=== PATIENT | female | born 1960 | race Caucasian/White ===

== ENCOUNTER → 2017-10-08 | Outpatient (CLI) | payer OTHER ==
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
--- NOTE | 2017-10-08 18:52 | Diagnostic Imaging Report ---
PROCEDURE: MRI lumbar spine. TECHNIQUE: Multiplanar, multisequence MRI of the lumbar spine was performed without contrast. INDICATION: Back pain. FINDINGS: There is some left convexity degenerative lumbar rotoscoliosis. The vertebral body heights are well maintained. There is some slight anterolisthesis of L4 on L5. There is no spondylolysis. Conus medullaris is seen at L1 and is normal in appearance. T12-L1 is unremarkable. At L1-2, there is loss of disc height and signal intensity. There is a left lateral annular bulge resulting in encroachment upon the left lateral recess. There is also moderate bilateral neural foraminal encroachment exacerbated by some hypertrophic degenerative facet disease. At L2-3, there is slight loss of disc height and signal intensity. There is some facet disease with thickening of the ligamentum flavum. There is slight effacement of the ventral thecal sac with mild central spinal stenosis. There is some encroachment upon the lateral recess bilaterally, left greater than right. There is moderate left neural foraminal encroachment. At L3-4, there is slight loss of disc height and signal intensity and some facet disease. At L4-5, there is broad-based annular bulging, facet disease, and thickening of the ligamentum flavum. There is moderately severe central spinal stenosis with encroachment upon the lateral recess bilaterally. There is moderate bilateral neural foraminal encroachment, left greater than right. At L5-S1, there is some mild broad-based annular bulging with slight effacement of the ventral thecal sac. The abdominal aorta is nonaneurysmal. Kidneys are unremarkable. IMPRESSION: Moderate diffuse lumbar spondylosis and multilevel degenerative disc disease as detailed above. Dictated by: Dictated on workstation # [id number]
== END ==
LOC: RAD 17:34
PROVIDERS: ATTEND Pediatrics
DX: M48.02 Spinal stenosis, cervical region (principal); M48.061 Spinal stenosis, lumbar region without neurogenic claudication; M47.812 Spondylosis without myelopathy or radiculopathy, cervical region; M47.816 Spondylosis without myelopathy or radiculopathy, lumbar region; M51.27 Other intervertebral disc displacement, lumbosacral region; M50.20 Other cervical disc displacement, unspecified cervical region; M53.82 Other specified dorsopathies, cervical region
CPT/HCPCS: 72141; 72148

== ENCOUNTER 2018-04-01 23:09 | Emergency (ER) | payer MEDICARE, OTHER ==
[~2018-04-01] VITALS: Ht 165.1 cm; Wt 43.1 kg
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
--- OUTSIDE RECORDS SUMMARY | 2018-04-01 23:17 | XMS REPORT ---
Author Author MANUEL JEOVANY Organization [facility] [place] Address [address] [place] [address] Care Team Providers Care Chemist Steroids Name Role Phone JEOVANY JACKSON Unavailable PROBLEMS Type Condition ICD9-CM Code [id number]-ZN Code Onset Dates Condition Status SNOMED Code Problem Cervical spondylolysis M43.02 Active 626883855 Problem Screening for diabetes mellitus Z13.1 Active 972278275 Problem Osteoarthritis of spine with radiculopathy, lumbosacral region M47.27 Active 395603858 Problem Osteoarthritis of spine with radiculopathy, cervical region M47.22 Active 805655546 Problem Degenerative disc disease, lumbar M51.36 Active 01965916 Problem Port catheter in place Z95.828 Active 703621683 Problem Chronic pain syndrome G89.4 Active 132642099 Problem Post traumatic stress disorder (PTSD) F43.10 Active 02658074 Problem Screening cholesterol level Z13.220 Active 963468520 Problem Bipolar disorder, current episode mixed, severe, without psychotic features F31.63 Active 846892025 Problem Bipolar disorder, current episode manic without psychotic features, severe F31.13 Active 532469 ALLERGIES No Information ENCOUNTERS Encounter Location Date Diagnosis [place] [id number] [place] [address] 20435- 1860 Mar, [facility] [place] [id number] [place] [address] 35360- 5633 Mar, [place] [address] [place] [id number] [place] [address] 37877- 8517 February, Bipolar disorder, current episode manic without psychotic features, severe F31.13 ; Port catheter in place Z95.828 ; Screening cholesterol level Z13.220 ; Chronic pain syndrome G89.4 and Screening for diabetes mellitus Z13.1 [facility] [place] [id number] [place] [address] 94111- 9666 February, [facility] [place] [id number] [place] [address] 84764- 8404 February, Chronic pain syndrome G89.4 [facility] [place] [id number] [place] [address] 68729- 4393 February, [facility] [place] [id number] [place] [address] 50088- 6686 Jan, [facility] [place] [id number] [place] [address] 25860- 9694 Jan, [facility] [place] [id number] [place] [address] 73947- 2836 Dec, Port catheter in place Z95.828 [facility] [place] [id number] [place] [address] 79162- 1865 Dec, Bipolar disorder, current episode manic without psychotic features, severe F31.13 and Chronic pain syndrome G89.4 [facility] [place] [id number] [place] [address] 50723- 6620 Dec, [facility] [id number] [place] [address] 27202 -1218 Dec, Pneumonia due to infectious organism, unspecified laterality, unspecified part of lung J18.9 [facility] [place] [id number] [place] [address] 54265- 5784 Dec, [facility] [place] [id number] [place] [address] 96568- 9824 Nov, Bipolar disorder, current episode mixed, severe, without psychotic features F31.63 [facility] [place] [address] [id number] [place] [address] 31450- 0983 Oct, [facility] [place] [id number] [place] [address] 53079- 1139 Oct, [facility] [place] [id number] [place] [address] 48172- 9812 Oct, [facility] [place] [address] [place] [address] 32465- 4337 Oct, [place] [address] [id number] [place] [address] 70988- 1467 Oct, Bipolar disorder, current episode mixed, severe, without psychotic features F31.63 [place] [address] [id number] [place] [address] 55592- 1722 Oct, Chronic pain syndrome G89.4 ; Bipolar disorder, current episode manic without psychotic features, severe F31.13 ; Post traumatic stress disorder (PTSD) F43.10 ; Screening cholesterol level Z13.220 and Screening for diabetes mellitus Z13.1 [place] [address] [place] [id number] [place] [address] 76672- 0190 Oct, [place] [address] [place] [id number] [place] [address] 72808- 5998 Oct, [place] [address] [place] [id number] [place] [address] 25205- 9931 Sep, [place] [address] 70350- 2339 Sep, Chronic pain syndrome G89.4 and Intermittent explosive disorder F63.81 [place] [address] [place] [id number] [place] [address] 64540- 3487 Sep, [place] [address] [place] [id number] [place] [address] 19728- 4413 Sep, Bipolar disorder, current episode mixed, severe, without psychotic features F31.63 [place] [address] [place] [id number] [place] [address] 68099- 3284 Sep, Bipolar disorder, current episode manic without psychotic features, severe F31.13 and Post traumatic stress disorder (PTSD) F43.10 [place] [address] [place] [id number] [place] [address] 06423- 9957 Aug, Acute bronchitis, unspecified organism J20.9 and Tobacco abuse Z72.0 IMMUNIZATIONS No Known Immunizations SOCIAL HISTORY Never Assessed REASON FOR VISIT PLAN OF CARE VITAL SIGNS MEDICATIONS Medication Instructions Dosage Frequency Start Date End Date Duration Status Seroquel 300 MG Orally at bedtime 1 tablet 30 days Active Trazodone HCl 100 MG Orally at bedtime as needed for sleep 1 tablet 30 days Active Xanax 1 MG Orally at bedtime 3 tablet 30 days Active Seroquel 50 MG Orally twice a day for mood 1 tablet Sep, 30 day(s) Active RESULTS No Results PROCEDURES No Known [...] History tonscillectomy 50 years ago Hospitalization History [place] inpatient treatment maybe 10 times for anger- state police will always take her there and they "dope her up" then she gets out Hospitalization History Surgery(s)/Childbirth(s) Hospitalization History pneumonia
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
--- OUTSIDE RECORDS SUMMARY | 2018-04-01 23:18 | XMS REPORT ---
Author Author MANUEL JEOVANY Organization [facility] Address [address] [place] [address] Care Team Providers Care Instant Printer Operator Name Role Phone JEOVANY JACKSON Unavailable PROBLEMS Type Condition ICD9-CM Code BEN14-WY Code Onset Dates Condition Status SNOMED Code Problem Cervical spondylolysis M43.02 Active 695900943 Problem Screening for diabetes mellitus Z13.1 Active 156212576 Problem Osteoarthritis of spine with radiculopathy, lumbosacral region M47.27 Active 337411928 Problem Osteoarthritis of spine with radiculopathy, cervical region M47.22 Active 929252964 Problem Degenerative disc disease, lumbar M51.36 Active 42180666 Problem Port catheter in place Z95.828 Active 135146290 Problem Chronic pain syndrome G89.4 Active 962781376 Problem Post traumatic stress disorder (PTSD) F43.10 Active 72654779 Problem Screening cholesterol level Z13.220 Active 363288566 Problem Bipolar disorder, current episode mixed, severe, without psychotic features F31.63 Active 771938793 Problem Bipolar disorder, current episode manic without psychotic features, severe F31.13 Active 893362 ALLERGIES No Information ENCOUNTERS Encounter Location Date Diagnosis [place] [address] [place] [address] 10347- 7355 Mar, [facility] [address] [place] [id number] [place] [address] 74817- 2757 Mar, [place] [address] [place] [id number] [place] [address] 22681- 2031 February, Bipolar disorder, current episode manic without psychotic features, severe F31.13 ; Port catheter in place Z95.828 ; Screening cholesterol level Z13.220 ; Chronic pain syndrome G89.4 and Screening for diabetes mellitus Z13.1 [facility] [id number] [place] [address] 78540- 3024 February, [facility] [id number] [place] [address] 09055- 8470 February, Chronic pain syndrome G89.4 [facility] [id number] [place] [address] 30045- 4243 February, [facility] [id number] [place] [address] 10714- 5150 Jan, [facility] [id number] [place] [address] 83096- 8543 Jan, [facility] [id number] [place] [address] 14776- 0168 Dec, Port catheter in place Z95.828 [facility] [id number] [place] [address] 67093- 5919 Dec, Bipolar disorder, current episode manic without psychotic features, severe F31.13 and Chronic pain syndrome G89.4 [facility] [id number] [place] [address] 11482- 7301 Dec, [facility] [id number] [place] [address] 82338 -5420 Dec, Pneumonia due to infectious organism, unspecified laterality, unspecified part of lung J18.9 [facility] [id number] [place] [address] 95945- 7309 Dec, [facility] [id number] [place] [address] 60277- 2124 Nov, Bipolar disorder, current episode mixed, severe, without psychotic features F31.63 [facility] [id number] [place] [address] 69522- 3114 Oct, [facility] [id number] [place] [address] 35250- 3200 Oct, [facility] [id number] [place] [address] 38951- 4382 Oct, [facility] [address] [place] [address] 11360- 1487 Oct, [place] [id number] [place] [address] 35811- 4529 Oct, Bipolar disorder, current episode mixed, severe, without psychotic features F31.63 [place] [id number] [place] [address] 83871- 6220 Oct, Chronic pain syndrome G89.4 ; Bipolar disorder, current episode manic without psychotic features, severe F31.13 ; Post traumatic stress disorder (PTSD) F43.10 ; Screening cholesterol level Z13.220 and Screening for diabetes mellitus Z13.1 [place] [address] [id number] [place] [address] 45391- 1647 Oct, [place] [address] [id number] [place] [address] 91978- 6184 Oct, [place] [id number] [place] [address] 97324- 2435 Sep, [place] [address] 35784- 1398 Sep, Chronic pain syndrome G89.4 and Intermittent explosive disorder F63.81 [place] [id number] [place] [address] 84204- 6359 Sep, [place] [address] [id number] [place] [address] 90395- 7884 Sep, Bipolar disorder, current episode mixed, severe, without psychotic features F31.63 [place] [id number] [place] [address] 46817- 3011 Sep, Bipolar disorder, current episode manic without psychotic features, severe F31.13 and Post traumatic stress disorder (PTSD) F43.10 [place] [id number] [place] [address] 90032- 7553 Aug, Acute bronchitis, unspecified organism J20.9 and Tobacco abuse Z72.0 IMMUNIZATIONS No Known Immunizations SOCIAL HISTORY Never Assessed REASON FOR VISIT Requests return call PLAN OF CARE VITAL SIGNS MEDICATIONS Unknown [...] History tonscillectomy 50 years ago Hospitalization History [place] inpatient treatment maybe 10 times for anger- state police will always take her there and they "dope her up" then she gets out Hospitalization History Surgery(s)/Childbirth(s) Hospitalization History pneumonia
--- OUTSIDE RECORDS SUMMARY | 2018-04-01 23:18 | XMS REPORT ---
Author Author BARRIGAELVIS Pagan Organization [facility] Address [address] [place] [address] Care Team Providers Care Surgical Orderly Name Role Phone ELVIS BARRIGA Unavailable PROBLEMS Type Condition ICD9-CM Code UUU78-CK Code Onset Dates Condition Status SNOMED Code Problem Cervical spondylolysis M43.02 Active 345976876 Problem Screening for diabetes mellitus Z13.1 Active 523097852 Problem Osteoarthritis of spine with radiculopathy, lumbosacral region M47.27 Active 032819190 Problem Osteoarthritis of spine with radiculopathy, cervical region M47.22 Active 493995655 Problem Degenerative disc disease, lumbar M51.36 Active 98745081 Problem Port catheter in place Z95.828 Active 999314291 Problem Chronic pain syndrome G89.4 Active 887539876 Problem Post traumatic stress disorder (PTSD) F43.10 Active 73505333 Problem Screening cholesterol level Z13.220 Active 391478848 Problem Bipolar disorder, current episode mixed, severe, without psychotic features F31.63 Active 549801660 Problem Bipolar disorder, current episode manic without psychotic features, severe F31.13 Active 527258 ALLERGIES No Information ENCOUNTERS Encounter Location Date Diagnosis [facility] [id number] [place] [address]4419- 5114 Jun, [facility] [id number] [place] [address] 99314- 2299 Mar, [facility] [id number] [place] [address] 15523- 1536 Mar, Chronic pain syndrome G89.4 and Bipolar disorder, current episode manic without psychotic features, severe F31.13 [facility] [address] [address] Mar, Bipolar disorder, current episode mixed, severe, without psychotic features F31.63 [facility] [id number] [place] [address] 50563- 9755 February, Bipolar disorder, current episode manic without psychotic features, severe F31.13 ; Port catheter in place Z95.828 ; Chronic pain syndrome G89.4 ; Screening cholesterol level Z13.220 and Screening for diabetes mellitus Z13.1 [facility] [id number] [place] [address] 73209- 2189 February, [facility] [id number] [place] [address] 37983- 7345 February, Chronic pain syndrome G89.4 [place] [id number] [place] [address] 61428- 9635 February, [facility] [id number] [place] [address] 67325- 7871 Jan, [facility] [id number] [place] [address] 37103- 5517 Jan, [facility] [id number] [place] [address] 96051- 6773 Dec, Port catheter in place Z95.828 [place] [id number] [place] [address] 47146- 8943 Dec, Bipolar disorder, current episode manic without psychotic features, severe F31.13 and Chronic pain syndrome G89.4 [facility] [id number] [place] [address] 02729- 5216 Dec, [facility] [id number] [place] [address] 38968 -3796 Dec, Pneumonia due to infectious organism, unspecified laterality, unspecified part of lung J18.9 [facility] [id number] [place] [address] 78533- 0155 Dec, [facility] [id number] [place] [address] 26757- 6271 Nov, Bipolar disorder, current episode mixed, severe, without psychotic features F31.63 [facility] [address] [address] Oct, [facility] [id number] [place] [address] 32920- 3359 Oct, [facility] [id number] [place] [address] 31160- 2332 Oct, [facility] [id number] [place] [address] 73795- 3347 Oct, [facility] [id number] [place] [address] 87759- 7313 Oct, Bipolar disorder, current episode mixed, severe, without psychotic features F31.63 [facility] [id number] [place] [address] 77923- 9817 Oct, Chronic pain syndrome G89.4 ; Bipolar disorder, current episode manic without psychotic features, severe F31.13 ; Post traumatic stress disorder (PTSD) F43.10 ; Screening cholesterol level Z13.220 and Screening for diabetes mellitus Z13.1 [facility] [id number] [place] [address] 17143- 7480 Oct, [facility] [id number] [place] [address] 68107- 4070 Oct, [facility] [id number] [place] [address] 16519- 6910 Sep, [facility] [id number] [place] [address] 52756- 8189 Sep, Chronic pain syndrome G89.4 and Intermittent explosive disorder F63.81 [facility] [id number] [place] [address] 90644- 1070 Sep, [facility] [id number] [place] [address] 69382- 5746 Sep, Bipolar disorder, current episode mixed, severe, without psychotic features F31.63 [facility] [address] [facility] [id number] [place] [address] 4881 Sep, Bipolar disorder, current episode manic without psychotic features, severe F31.13 and Post traumatic stress disorder (PTSD) F43.10 [facility] [address] [facility] [id number] [place] [address] 8295 Aug, Acute bronchitis, unspecified organism J20.9 and Tobacco abuse Z72.0 IMMUNIZATIONS No Known Immunizations SOCIAL HISTORY Never Assessed REASON FOR VISIT Other PLAN OF CARE VITAL SIGNS MEDICATIONS Medication Instructions Dosage Frequency Start Date End Date Duration Status Promethazine HCl 25 MG Orally every 8 hrs 1 tablet as needed Nov, 30 days Active RESULTS No Results PROCEDURES [...] History tonscillectomy 50 years ago Hospitalization History [place] inpatient treatment maybe 10 times for anger- state police will always take her there and they "dope her up" then she gets out Hospitalization History Surgery(s)/Childbirth(s) Hospitalization History pneumonia
--- OUTSIDE RECORDS SUMMARY | 2018-04-01 23:18 | XMS REPORT ---
Author Author ROSALVA HURD [facility] Address [address] [place] [address] Care Team Providers Care Fuel Conversion Technician Name Role Phone ROSALVA HURD Unavailable PROBLEMS Type Condition ICD9-CM Code ZHV77-OM Code Onset Dates Condition Status SNOMED Code Problem Cervical spondylolysis M43.02 Active 419356660 Problem Screening for diabetes mellitus Z13.1 Active 366669807 Problem Osteoarthritis of spine with radiculopathy, lumbosacral region M47.27 Active 201165764 Problem Osteoarthritis of spine with radiculopathy, cervical region M47.22 Active 179241463 Problem Degenerative disc disease, lumbar M51.36 Active 39752418 Problem Port catheter in place Z95.828 Active 149203477 Problem Chronic pain syndrome G89.4 Active 636236770 Problem Post traumatic stress disorder (PTSD) F43.10 Active 27128998 Problem Screening cholesterol level Z13.220 Active 203269020 Problem Bipolar disorder, current episode mixed, severe, without psychotic features F31.63 Active 225431554 Problem Bipolar disorder, current episode manic without psychotic features, severe F31.13 Active 557398 ALLERGIES No Information ENCOUNTERS Encounter Location Date Diagnosis [place] [id number] [place] [address] 02972- 6072 Mar, [facility] [id number] [place] [address] 09564- 2695 Mar, [place] [id number] [place] [address] 66100- 3506 February, Bipolar disorder, current episode manic without psychotic features, severe F31.13 ; Port catheter in place Z95.828 ; Screening cholesterol level Z13.220 ; Chronic pain syndrome G89.4 and Screening for diabetes mellitus Z13.1 [place] [id number] [place] [address] 82345- 1464 February, [facility] [id number] [place] [address] 66302- 6208 February, Chronic pain syndrome G89.4 [facility] [id number] [place] [address] 12373- 9494 February, [facility] [id number] [place] [address] 65196- 1578 Jan, [facility] [id number] [place] [address] 14500- 6363 Jan, [facility] [id number] [place] [address] 27137- 1538 Dec, Port catheter in place Z95.828 [facility] [id number] [place] [address] 85067- 0388 Dec, Bipolar disorder, current episode manic without psychotic features, severe F31.13 and Chronic pain syndrome G89.4 [facility] [id number] [place] [address] 40403- 5456 Dec, [facility] [id number] [place] [address] 89604 -1373 Dec, Pneumonia due to infectious organism, unspecified laterality, unspecified part of lung J18.9 [facility] [id number] [place] [address] 04601- 8303 Dec, [facility] [id number] [place] [address] 10142- 8381 Nov, Bipolar disorder, current episode mixed, severe, without psychotic features F31.63 [facility] [id number] [place] [address] 43165- 3719 Oct, [facility] [id number] [place] [address] 05824- 6611 Oct, [facility] [id number] [place] [address] 95326- 4748 Oct, [facility] [address] [place] [address] 94825- 9707 Oct, [place] [id number] [place] [address] 09205- 3604 Oct, Bipolar disorder, current episode mixed, severe, without psychotic features F31.63 [place] [id number] [place] [address] 28700- 5660 Oct, Chronic pain syndrome G89.4 ; Bipolar disorder, current episode manic without psychotic features, severe F31.13 ; Post traumatic stress disorder (PTSD) F43.10 ; Screening cholesterol level Z13.220 and Screening for diabetes mellitus Z13.1 [place] [id number] [place] [address] 60430- 6098 Oct, [place] [id number] [place] [address] 42751- 3292 Oct, [place] [id number] [place] [address] 91413- 8563 Sep, [place] [address] 50856- 0306 Sep, Chronic pain syndrome G89.4 and Intermittent explosive disorder F63.81 [place] [id number] [place] [address] 64973- 2957 Sep, [place] [id number] [place] [address] 72188- 1053 Sep, Bipolar disorder, current episode mixed, severe, without psychotic features F31.63 [place] [id number] [place] [address] 55213- 2840 Sep, Bipolar disorder, current episode manic without psychotic features, severe F31.13 and Post traumatic stress disorder (PTSD) F43.10 [place] [id number] [place] [address] 96794- 4079 Aug, Acute bronchitis, unspecified organism J20.9 and Tobacco abuse Z72.0 IMMUNIZATIONS No Known Immunizations SOCIAL HISTORY Never Assessed REASON FOR VISIT intake PLAN OF CARE Activity Details Follow Up prn Reason: F/U VITAL SIGNS MEDICATIONS Medication Instructions Dosage Frequency Start Date End Date Duration Status Seroquel 200 mg Orally at bedtime 1 tablet Active Zanaflex 4 MG Orally every 4-6 hours as needed 1 tablet as needed Active Percocet 10-325 MG Orally 4 times a day 1 tablet as needed 6h Active Active Spiriva HandiHaler Active Vascepa 1 GM Orally Once a day 1 capsule 24h Active Promethazine HCl 25 MG Orally every 12 hrs 1 tablet as needed 12h Active Trazodone HCl 100 MG Orally Once a day 1 tablet at bedtime 24h Active Xopenex Active Gabapentin 300 MG Orally 3 times a day 1 capsule 8h Active Xanax 3 Orally at bedtime 1 tablet Active Fish Oil Active Vitamin D Active RESULTS No Results PROCEDURES Procedure Date Ordered Result Body Site Psych diagnostic evaluation, established patient Sep 19, 2017 INSTRUCTIONS MEDICATIONS ADMINISTERED No Known Medications MEDICAL [...] History tonscillectomy 50 years ago Hospitalization History [place] inpatient treatment maybe 10 times for anger- state police will always take her there and they "dope her up" then she gets out Hospitalization History Surgery(s)/Childbirth(s) Hospitalization History pneumonia
--- OUTSIDE RECORDS SUMMARY | 2018-04-01 23:18 | XMS REPORT ---
Author Author NAGRIS MCGILL Organization [facility] Address [address] [place] [address] Care Team Providers Care Lay Ups Assembler Name Role Phone NARGIS MCGILL Unavailable PROBLEMS Type Condition ICD9-CM Code [id number] Code Onset Dates Condition Status SNOMED Code Problem Cervical spondylolysis M43.02 Active 481013524 Problem Screening for diabetes mellitus Z13.1 Active 766046230 Problem Osteoarthritis of spine with radiculopathy, lumbosacral region M47.27 Active 269888006 Problem Osteoarthritis of spine with radiculopathy, cervical region M47.22 Active 166355159 Problem Degenerative disc disease, lumbar M51.36 Active 99565614 Problem Port catheter in place Z95.828 Active 523513446 Problem Chronic pain syndrome G89.4 Active 821674094 Problem Post traumatic stress disorder (PTSD) F43.10 Active 10880652 Problem Screening cholesterol level Z13.220 Active 455306370 Problem Bipolar disorder, current episode mixed, severe, without psychotic features F31.63 Active 617055896 Problem Bipolar disorder, current episode manic without psychotic features, severe F31.13 Active 588044 ALLERGIES Substance Reaction Event Type Date Status Hysingla ER Unknown Drug Allergy Sep, Active Motrin Unknown Drug Allergy Sep, Active Ibuprofen Unknown Drug Allergy Sep, Active Baclofen Unknown Drug Allergy Sep, Active Atrovent Unknown Drug Allergy Sep, Active Albuterol Unknown Drug Allergy Sep, Active Advil Unknown Drug Allergy Sep, Active ENCOUNTERS Encounter Location Date Diagnosis [facility] [address] [facility] [id number] [address] Mar, [facility] [address] [facility] [id number], [place] [address]- [address]2 Mar, [facility] [id number] [address]- [address]47 February, Bipolar disorder, current episode manic without psychotic features, severe F31.13 ; Port catheter in place Z95.828 ; Chronic pain syndrome G89.4 ; Screening cholesterol level Z13.220 and Screening for diabetes mellitus Z13.1 [facility] [id number] [place] [address] 80881- 6442 February, [facility] [id number] [place] [address] 31497- 4360 February, Chronic pain syndrome G89.4 [facility] [id number] [place] [address] 56034- 5250 February, [facility] [id number] [place] [address] 39881- 0105 Jan, [facility] [id number] [place] [address] 87927- 1872 Jan, [facility] [address] 49818- 2968 Dec, Port catheter in place Z95.828 [place] [id number] [place] [address] 25551- 8600 Dec, Bipolar disorder, current episode manic without psychotic features, severe F31.13 and Chronic pain syndrome G89.4 [facility] [id number] [place] [address] 48971- 9925 Dec, [facility] [id number] [place] [address] 19714 -7336 Dec, Pneumonia due to infectious organism, unspecified laterality, unspecified part of lung J18.9 [facility] [id number] [place] [address] 58567- 3308 Dec, [facility] [id number] [place] [address] 62836- 8369 Nov, Bipolar disorder, current episode mixed, severe, without psychotic features F31.63 [place] [address] [place] [address]- 3672 Oct, [facility] [address], [place] [address]- 3605 Oct, [facility] [address], [place] [address]- 2534 Oct, [facility] [address] [place] [address] 14693- 0953 Oct, [facility] [address] [place] [address] 54797- 7200 Oct, Bipolar disorder, current episode mixed, severe, without psychotic features F31.63 [facility] [address] [place] [address] 58718- 2999 Oct, Chronic pain syndrome G89.4 ; Bipolar disorder, current episode manic without psychotic features, severe F31.13 ; Post traumatic stress disorder (PTSD) F43.10 ; Screening cholesterol level Z13.220 and Screening for diabetes mellitus Z13.1 [facility] [address], [place] [address]- 0366 Oct, [facility] [address] [place] [address] 51721- 8617 Oct, [facility] [address], [place] [address]- 0305 Sep, [facility] [address], [place] [address]- 6871 Sep, Chronic pain syndrome G89.4 and Intermittent explosive disorder F63.81 [facility] [address], [place] [address]- 0997 Sep, [facility] [address], [place] [address]- 9652 Sep, Bipolar disorder, current episode mixed, severe, without psychotic features F31.63 [facility] [address], [place] [address]- 7425 Sep, Bipolar disorder, current episode manic without psychotic features, severe F31.13 and Post traumatic stress disorder (PTSD) F43.10 [facility] [address] [facility] [id number] [place] [address]- 7398 Aug, Acute bronchitis, unspecified organism J20.9 and Tobacco abuse Z72.0 IMMUNIZATIONS No Known Immunizations SOCIAL HISTORY Never Assessed REASON FOR VISIT Pain Management-Alexander NAVARRO, Has establish care with Dillon Brigitte 10/17/16, Was seeing Noam Montoya in [place], [place] PLAN OF CARE Activity Details Follow Up 4 Weeks Reason:pain mgmt VITAL SIGNS Height 67 in 2017-10-02 Weight 90.2 lbs 2017-10-02 Temperature 98.0 degrees Fahrenheit 2017-10-02 Heart Rate 84 bpm 2017-10-02 Respiratory Rate 18 2017-10-02 BMI 14.13 kg/m2 2017-10-02 Blood pressure systolic 98 mmHg 2017-10-02 Blood pressure diastolic 72 mmHg 2017-10-02 MEDICATIONS Medication Instructions Dosage Frequency Start Date End Date Duration Status Percocet 10-325 MG Orally 4 times a day 1 tablet as needed 6h Active Xopenex Active Seroquel 50 MG Orally twice a day for mood 1 tablet Sep, 30 day(s) Active Gabapentin 300 MG Orally 3 times a day 1 capsule 8h 30 days Active Promethazine HCl 25 MG Orally every 12 hrs 1 tablet as needed 12h Active Vascepa 1 GM Orally Once a day 1 capsule 24h Active Spiriva HandiHaler Active Zanaflex 4 MG Orally every 4-6 hours as needed 1 tablet as needed Active Active Fish Oil Active Trazodone HCl 100 MG Orally at bedtime as needed for sleep 1 tablet 30 days Active Seroquel 300 MG Orally at bedtime 0.5 tablet for 3 nights then take full tablet every night 30 days Active Xanax 1 MG Orally at bedtime 3 tablet 30 days Active Vitamin D Active RESULTS Name Result Date Reference Range MRI : Cervical w/o Contrast 2017-10-08 MRI : Lumbar w/o contrast 2017-10-08 PROCEDURES No Known procedures INSTRUCTIONS MEDICATIONS ADMINISTERED [...] History tonscillectomy 50 years ago Hospitalization History [place] inpatient treatment maybe 10 times for anger- state police will always take her there and they "dope her up" then she gets out Hospitalization History Surgery(s)/Childbirth(s) Hospitalization History pneumonia
--- OUTSIDE RECORDS SUMMARY | 2018-04-01 23:18 | XMS REPORT ---
Author Author BARRIGAEMIL PaganELE Organization [facility] Address [address] [place] [address] Care Team Providers Care Data Center Technician Name Role Phone ELVIS BARRIGA Unavailable PROBLEMS Type Condition ICD9-CM Code JKM71-AG Code Onset Dates Condition Status SNOMED Code Problem Cervical spondylolysis M43.02 Active 463903620 Problem Screening for diabetes mellitus Z13.1 Active 942930687 Problem Osteoarthritis of spine with radiculopathy, lumbosacral region M47.27 Active 695438724 Problem Osteoarthritis of spine with radiculopathy, cervical region M47.22 Active 862450814 Problem Degenerative disc disease, lumbar M51.36 Active 14311824 Problem Port catheter in place Z95.828 Active 262614846 Problem Chronic pain syndrome G89.4 Active 455932626 Problem Post traumatic stress disorder (PTSD) F43.10 Active 90449379 Problem Screening cholesterol level Z13.220 Active 428994757 Problem Bipolar disorder, current episode mixed, severe, without psychotic features F31.63 Active 732747121 Problem Bipolar disorder, current episode manic without psychotic features, severe F31.13 Active 404459 ALLERGIES Substance Reaction Event Type Date Status Hysingla ER Unknown Drug Allergy Oct, Active Motrin vomiting Drug Allergy Oct, Active Ibuprofen vomiting Drug Allergy Oct, Active Baclofen vomiting Drug Allergy Oct, Active Atrovent vomiting Drug Allergy Oct, Active Albuterol vomiting Drug Allergy Oct, Active Advil vomiting Drug Allergy Oct, Active ENCOUNTERS Encounter Location Date Diagnosis [facility] [id number] [address] Mar, [facility] [id number] [address] Mar, [facility] [id number] [address] February, Bipolar disorder, current episode manic without psychotic features, severe F31.13 ; Port catheter in place Z95.828 ; Chronic pain syndrome G89.4 ; Screening cholesterol level Z13.220 and Screening for diabetes mellitus Z13.1 [facility] [id number] [place] [address] February, [facility] [id number] [place] [address] February, Chronic pain syndrome G89.4 [facility] [id number] [place] [address] February, [facility] [id number] [place] [address] Jan, [facility] [id number] [place] [address] Jan, [facility] [id number] [place] [address] Dec, Port catheter in place Z95.828 [id number] [place] [address] Dec, Bipolar disorder, current episode manic without psychotic features, severe F31.13 and Chronic pain syndrome G89.4 [facility] [id number] [place] [address] Dec, [facility] [id number] [place] [phone] Dec, Pneumonia due to infectious organism, unspecified laterality, unspecified part of lung J18.9 [facility] [id number] [place] [address] 8[address]46[address] Dec, [facility] [id number] [place] [address] Nov, Bipolar disorder, current episode mixed, severe, without psychotic features F31.63 [id number] [address] Oct, [facility] [address] [address] Oct, [facility] [address] [address] Oct, [facility] [id number] [place] [address] Oct, [facility] [id number] [place] [address] Oct, Bipolar disorder, current episode mixed, severe, without psychotic features F31.63 [id number] [place] [address] Oct, Chronic pain syndrome G89.4 ; Bipolar disorder, current episode manic without psychotic features, severe F31.13 ; Post traumatic stress disorder (PTSD) F43.10 ; Screening cholesterol level Z13.220 and Screening for diabetes mellitus Z13.1 [id number] [place] [address] 6[address] Oct, [facility] [id number] [place] [address] 105[address] Oct, [facility] [address] [address] Sep, [facility] [address] [address] Sep, Chronic pain syndrome G89.4 and Intermittent explosive disorder F63.81 [facility] [address] [address] Sep, [facility] [id number] [place] [address] 9[address]99- [address] Sep, Bipolar disorder, current episode mixed, severe, without psychotic features F31.63 [facility] [address] [place] [address] Sep, Bipolar disorder, current episode manic without psychotic features, severe F31.13 and Post traumatic stress disorder (PTSD) F43.10 [facility] [address] [facility] [id number] [place] [address] Aug, Acute bronchitis, unspecified organism J20.9 and Tobacco abuse Z72.0 IMMUNIZATIONS No Known Immunizations SOCIAL HISTORY Never Assessed REASON FOR VISIT [facility] -regular medication without any pain medications and review MRI results at [facility], - dealing with anger PLAN OF CARE Activity Details Follow Up 3 Months Reason:CHM VITAL SIGNS Weight 106.3 lbs 2017-10-17 Temperature 97.4 degrees Fahrenheit 2017-10-17 Heart Rate 78 bpm 2017-10-17 Respiratory Rate 20 2017-10-17 Blood pressure systolic 102 mmHg 2017-10-17 Blood pressure diastolic 70 mmHg 2017-10-17 MEDICATIONS Medication Instructions Dosage Frequency Start Date End Date Duration Status Seroquel 50 MG Orally twice a day for mood 1 tablet Sep, 30 day(s) Active Vitamin D Active Active Xanax 1 MG Orally at bedtime 3 tablet 30 days Active Promethazine HCl 25 MG Orally every 12 hrs 1 tablet as needed 12h Active Gabapentin 600 MG Orally 3 times a day 1 capsule 8h 90 days Active Seroquel 100 MG Orally at bedtime 1 tablet Active Fish Oil Active Xopenex Active Spiriva HandiHaler Active Trazodone HCl 100 MG Orally at [...] History tonscillectomy 50 years ago Hospitalization History [place] inpatient treatment maybe 10 times for anger- state police will always take her there and they "dope her up" then she gets out Hospitalization History Surgery(s)/Childbirth(s) Hospitalization History pneumonia
[2018-04-01] MEDS ORDERED: OXCA300T (23:29)
[2018-04-01] MEDS ORDERED: QUET300T44 (23:29)
[2018-04-01] MEDS ORDERED: CELE-63 (23:29)
[2018-04-01] MEDS ORDERED: OXYC-465 (23:29)
[2018-04-01] MEDS ORDERED: ALPR0.254 (23:29)
[2018-04-01] MEDS ORDERED: BUDE10.2 (23:29)
[2018-04-01] MEDS ORDERED: QUET200T57 (23:29)
[2018-04-01] MEDS ORDERED: GABA800T2 (23:29)
[2018-04-01 23:51] LABS: BASOPHILS % (AUTO) 0 % (0-10); EOSINOPHILS # (AUTO) 0.2 10^3/uL (0.0-0.3); EOSINOPHILS % (AUTO) 5 % (0-10); HEMATOCRIT 32 % (35-52); HEMOGLOBIN 10.5 G/DL (11.5-16.0); LYMPHOCYTES # (AUTO) 1.4 X 10^3 (1.0-4.0); LYMPHOCYTES % (AUTO) 31 % (12-44); MEAN CORPUSCULAR HEMOGLOBIN 33 PG (25-34); MEAN CORPUSCULAR HGB CONC 33 G/DL (32-36); MEAN CORPUSCULAR VOLUME 100 FL (80-99); MEAN PLATELET VOLUME 9.1 FL (7.4-10.4); MONOCYTES # (AUTO) 0.3 X 10^3 (0.0-1.0); MONOCYTES % (AUTO) 6 % (0-12); NEUTROPHILS # (AUTO) 2.7 X 10^3 (1.8-7.8); NEUTROPHILS % (AUTO) 58 % (42-75); PLATELET COUNT 258 10^3/uL (130-400); RED BLOOD COUNT 3.21 10^6/uL (4.35-5.85); RED CELL DISTRIBUTION WIDTH 15.8 % (10.0-14.5); WHITE BLOOD COUNT 4.7 10^3/uL (4.3-11.0)
[2018-04-02 00:14] LABS: ALANINE AMINOTRANSFERASE 19 U/L (0-55); ALBUMIN 4.2 GM/DL (3.2-4.5); ALKALINE PHOSPHATASE 70 U/L (40-136); BILIRUBIN,TOTAL 0.6 MG/DL (0.1-1.0); BUN/CREATININE RATIO 17; CALCIUM 9.4 MG/DL (8.5-10.1); CARBON DIOXIDE 21 MMOL/L (21-32); CHLORIDE 103 MMOL/L (98-107); CREATININE SERUM 0.84 MG/DL (0.60-1.30); GFR ESTIMATED > 60; GLUCOSE 96 MG/DL (70-105); MAGNESIUM 2.1 MG/DL (1.8-2.4); SODIUM 136 MMOL/L (135-145); TOTAL PROTEIN 6.7 GM/DL (6.4-8.2)
[2018-04-02 00:17] LABS: PROTHROMBIN TIME PATIENT 13.4 SEC (12.2-14.7)
[2018-04-02] MEDS ORDERED: methylPREDNISolone 125 MG (Solu-MEDROL) VIAL IV STA (00:29)
[2018-04-02] MEDS ORDERED: RX-TRIMETH/SULFA. 160-800 MG (BACTRIM DS) TAB PPK#2 PO STA (00:30)
[2018-04-02] MEDS ORDERED: CLINDAMYCIN 600 MG/50 ML IVPB 50 ML IV ONE (00:30)
[2018-04-02 00:34] LABS: TSH (THYROID ANALYZER) 2.31 UIU/ML (0.35-4.94)
[2018-04-02] MEDS ORDERED: METH4TAB PO (00:35)
[2018-04-02] MEDS ORDERED: MUPI15CR TP (00:35)
[2018-04-02] MEDS ORDERED: SULF1TAB35 PO (00:35)
--- NOTE | 2018-04-02 00:35 | ED Upper Extremity ---
General Chief Complaint: Upper Extremity Stated Complaint: LEFT ARM NOT WORKING RIGHT,SWOLLEN Nursing Triage Note: left upper arm swelling, no injury Nursing Sepsis Screen: No Definite Risk Allergies and Home Medications Allergies Coded Allergies: NSAIDS (Non-Steroidal Anti-Inflamma (Verified Allergy, Unknown, 04/01/18) albuterol (Verified Allergy, Unknown, 04/01/18) baclofen (Verified Allergy, Unknown, 04/01/18) Past Fqiufpw-Jejztc-Elvtat Hx Patient Social History Alcohol Use: Denies Use Recreational Drug Use: No Smoking Status: Current Everyday Smoker Type Used: Cigarettes 2nd Hand Smoke Exposure: Yes Recent Foreign Travel: No Contact w/Someone Who Travel: No Recent Infectious Disease Expo: No Recent Hopitalizations: No Immunizations Up To Date Tetanus Booster (TDap): Less than 5yrs Seasonal Allergies Seasonal Allergies: No Past Medical History Surgeries: Yes (lymphnode removed, port) Hysterectomy Respiratory: Yes Asthma, COPD Cardiac: No Neurological: Yes Neuropathy 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 Genitourinary: No Gastrointestinal: No Musculoskeletal: Yes Arthritis, Fibromyalgia Endocrine: No HEENT: No Cancer: No Psychosocial: Yes Anxiety Integumentary: Yes Recent Skin Changes Blood Disorders: No Adverse Reaction/Blood Tranf: No Physical Exam Vital Signs Vital Signs - First Documented 04/01/18 23:30 Temp 96.9 Pulse 105 Resp 18 B/P (MAP) 133/85 (101) Pulse Ox 95 O2 Delivery Room Air Capillary Refill : Less Than 3 Seconds Progress/Results/Core Measures Results/Orders Lab Results Laboratory Tests Test 04/01/18 23:45 Range/Units White Blood Count 4.7 4.3-11.0 10^3/uL Red Blood Count 3.21 L 4.35-5.85 10^6/uL Hemoglobin 10.5 L 11.5-16.0 G/DL Hematocrit 32 L 35-52 % Mean Corpuscular Volume 100 H 80-99 FL Mean Corpuscular Hemoglobin 33 25-34 PG Mean Corpuscular Hemoglobin Concent 33 32-36 G/DL Red Cell Distribution Width 15.8 H 10.0-14.5 % Platelet Count 258 130-400 10^3/uL Mean Platelet Volume 9.1 7.4-10.4 FL Neutrophils (%) (Auto) 58 42-75 % Lymphocytes (%) (Auto) 31 12-44 % Monocytes (%) (Auto) 6 0-12 % Eosinophils (%) (Auto) 5 0-10 % Basophils (%) (Auto) 0 0-10 % Neutrophils # (Auto) 2.7 1.8-7.8 X 10^3 Lymphocytes # (Auto) 1.4 1.0-4.0 X 10^3 Monocytes # (Auto) 0.3 0.0-1.0 X 10^3 Eosinophils # (Auto) 0.2 0.0-0.3 10^3/uL Basophils # (Auto) 0.0 0.0-0.1 10^3/uL Prothrombin Time 13.4 12.2-14.7 SEC INR Comment 1.0 0.8-1.4 Activated Partial Thromboplast Time 38 H 24-35 SEC Sodium Level 136 135-145 MMOL/L Potassium Level 4.0 3.6-5.0 MMOL/L Chloride Level 103 98-107 MMOL/L Carbon Dioxide Level 21 21-32 MMOL/L Anion Gap 12 5-14 MMOL/L Blood Urea Nitrogen 14 7-18 MG/DL Creatinine 0.84 0.60-1.30 MG/DL Estimat Glomerular Filtration Rate > 60 BUN/Creatinine Ratio 17 Glucose Level 96 70-105 MG/DL Calcium Level 9.4 8.5-10.1 MG/DL Magnesium Level 2.1 1.8-2.4 MG/DL Total Bilirubin 0.6 0.1-1.0 MG/DL Aspartate Amino Transf (AST/SGOT) 24 5-34 U/L Alanine Aminotransferase (ALT/SGPT) 19 0-55 U/L Alkaline Phosphatase 70 40-136 U/L Total Protein 6.7 6.4-8.2 GM/DL Albumin 4.2 3.2-4.5 GM/DL My Orders Orders - INGRID PAIZ DO Cbc With Automated Diff (04/01/18 23:31) Comprehensive Metabolic Panel (04/01/18 23:31) Magnesium (04/01/18 23:31) Protime With Inr (04/01/18 23:31) Partial Thromboplastin Time (04/01/18 23:31) Thyroid Analyzer (04/01/18 23:31) Saline Lock/Iv-Start (04/01/18 23:31) Wrist-[place] (04/02/18 00:29) Methylprednisolone Sod Succ (Solu-Medrol (04/02/18 00:29) Vital Signs/I&O 04/01/18 23:30 Temp 96.9 Pulse 105 Resp 18 B/P (MAP) 133/85 (101) Pulse Ox 95 O2 Delivery Room Air Blood Pressure Mean: 101 Departure Impression Primary Impression: Cellulitis of left upper arm Additional Impression: Left wrist drop Disposition: 01 HOME, SELF-CARE Condition: Stable Departure-Patient Inst. Referrals: NARGIS MCGILL MD (PCP/Family) Primary Care Physician Patient Instructions: Cellulitis (Skin Infection), Adult (DC), Common Wrist Injuries (DC), SPLINT CARE Add. Discharge Instructions: WEAR SPLINT NEEDED WIGGLE FINGERS FREQUENTLY DO NOT WEAR RINGS OR WATCH ON LEFT HAND UNTIL YOU ARE RECHECKED AND CLEARED BY DR. DO NOT POP BLISTER, BUT IF IT POPS ON IT'S OWN. CLEAN AREA TWICE A DAY AND APPLY ANTIBIOTIC OINTMENT TWICE A DAY AND APPLY A FRESH DRESSING FOLLOW UP WITH [facility] TOMORROW FOR FURTHER CARE All discharge instructions reviewed with patient and/or family. Voiced understanding. Scripts Methylprednisolone (Medrol) 4 Mg Tab.ds.pk 4 MG PO UD, #1 PKG Prov: INGRID PAIZ DO 04/02/18 Mupirocin Calcium (Bactroban) 15 Gm Cream..g. 15 GM TP BID, #22 TUBE Prov: INGRID PAIZ DO 04/02/18 Sulfamethoxazole/Trimethoprim (Bactrim Ds Tablet) 1 Each Tablet 1 EACH PO BID, #20 TAB Prov: INGRID PAIZ DO 04/02/18 INGRID PAIZ DO Apr 02, 2018 00:35
[2018-04-02 01:03] VITALS: BP 97/62
== END 2018-04-02 00:58 | disposition home or self-care (01) ==
LOC: EDUNIT# 23:09 → ER 23:13
DX: L03.114 Cellulitis of left upper limb (principal); M21.932 Unspecified acquired deformity of left forearm; J44.9 Chronic obstructive pulmonary disease, unspecified; F41.9 Anxiety disorder, unspecified; F17.210 Nicotine dependence, cigarettes, uncomplicated; Z90.710 Acquired absence of both cervix and uterus; Z88.6 Allergy status to analgesic agent; Z88.1 Allergy status to other antibiotic agents
CPT/HCPCS: 36415; 80053; 83735; 84443; 85025; 85610; 85730; 96365; 96375

== ENCOUNTER 2019-10-07 12:50 | Emergency (ER) | payer MEDICARE, OTHER ==
[~2019-10-07] VITALS: Ht 165 cm; Wt 45.0 kg
[~2019-10-07 12:50] MED LIST: ALPR0.254; BUDE10.2; CELE-63; GABA800T10; METH4TAB PO; MUPI15CR TP; OXCA300T18; OXYC-465; QUET200T57; QUET300T44; SULF1TAB35 PO
[2019-10-07] MEDS ORDERED: KETAMINE/NaCl 50 MG/5 ML SYRINGE (ED ONLY) IV ONE ×2 (13:00→13:45)
[2019-10-07] MEDS ORDERED: fentaNYL INJECTION 100 MCG/2 ML AMP IVP ONE ×2 (13:00→13:45)
--- NOTE | 2019-10-07 13:00 | ED Fall/Injury ---
General Stated Complaint: FALL/ RT HIP PAIN Source: patient, EMS Exam Limitations: no limitations History of Present Illness Date Seen by Provider: Oct 07, 2019 Time Seen by Provider: 12:40 Initial Comments Patient presents to ER by EMS, [facility] with chief complaint that she was walking her [place] grande outside her house when he saw another dog and ran forward and she tried to stop it but it pulled her over landing on her right hip. She has some external rotation and pain in her right hip 10 of 10 per EMS. They were not able to establish an IV or give her any pain medicine. She's not having any nausea fever chills cough sweats dysuria or abdominal pain. She has no previous history of fracture or injury to her hip. She does have a history of back surgeries and she was a teenager. She still smokes about half pack cigarettes per day but does not drink or use drugs. She uses Percocet at baseline but has not had any today. She has an allergy to NSAIDs that is vomiting and gastritis. She's not on blood thinners and denies hitting her head nor loss of consciousness. She says she did not hit her back and only other place she has any pain is a small abrasion over her left thumb. Allergies and Home Medications Allergies Coded Allergies: NSAIDS (Non-Steroidal Anti-Inflamma (Verified Allergy, Unknown, 04/01/18) albuterol (Verified Allergy, Unknown, 04/01/18) baclofen (Verified Allergy, Unknown, 04/01/18) Home Medications Methylprednisolone 4 Mg Tab.ds.pk, 4 MG PO UD Prescribed by: INGRID PAIZ on 04/02/1834 Mupirocin Calcium 15 Gm Cream..g., 15 GM TP BID Prescribed by: INGRID PAIZ on 04/02/1834 Sulfamethoxazole/Trimethoprim 1 Each Tablet, 1 EACH PO BID Prescribed by: INGRID PAIZ on 04/02/1834 Patient Home Medication List Home Medication List Reviewed: Yes Review of Systems Review of Systems Constitutional: No chills, No diaphoresis Eyes: Denies Blindness, Denies Blurred Vision Ears, Nose, Mouth, Throat: denies ear pain, denies ear discharge Respiratory: No cough, No short of breath Cardiovascular: No chest pain, No edema Gastrointestinal: No abdominal pain, No constipation, No diarrhea, No nausea Genitourinary: No discharge, No dysuria Musculoskeletal: see HPI; No back pain; joint pain (right hip left thumb); No neck pain Skin: No pruritus, No rash Past Qmzurww-Vixxtu-Cwojiy Hx Patient Social History Alcohol Use: Denies Use Recreational Drug Use: No Type Used: Cigarettes 2nd Hand Smoke Exposure: Yes Recent Hopitalizations: No Immunizations Up To Date Tetanus Booster (TDap): Less than 5yrs Seasonal Allergies Seasonal Allergies: No Past Medical History Surgeries: Yes (PORT LEFT CHEST; LEFT THORACIC OUTLET SURGERY; LYMPH NODE REMOVAL) Hysterectomy, Orthopedic Respiratory: Yes Asthma, COPD Cardiac: No Neurological: Yes 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 oz. 43.559626te; BMI Method:Stated General Appearance: WD/WN, mild distress HEENT: PERRL/EOMI, TMs normal, pharynx normal (poor dentition), other (negative for Santos sign, hemotympanum or raccoon eyes) Neck: non-tender, full range of motion, supple, normal inspection Cardiovascular: normal peripheral pulses, regular rate, rhythm Respiratory: lungs clear, normal breath sounds, no respiratory distress, no accessory muscle use Peripheral Pulses: 2+ Dorsalis Pedis (R), 2+ Left Dors-Pedis (L) Gastrointestinal: normal bowel sounds, non tender, soft Back: normal inspection, no vertebral tenderness Extremities: normal range of motion, non-tender, normal inspection, normal capillary refill, other (right leg externally rotated and painful to touch over proximal femur) Neurologic/Psychiatric: alert, normal mood/affect, oriented x 3 Skin: normal color, warm/dry, other (4 mm round abrasion over the lateral portion of the left thumb proximal phalanx) Elsa Coma Score Best Eye Response: (4) Open Spontaneously Best Verbal Response: (5) Oriented Best Motor Response: (6) Obeys Commands [place] Total: 15 Progress/Results/Core Measures Results/Orders My Orders Orders - MARIANO CHU Fentanyl Injection (Sublimaze Injection (10/07/19 13:00) Ketamine Syringe (Ed Only) (Ketamine Syr (10/07/19 13:00) Ed Iv/Invasive Line Start (10/07/19 12:52) Cbc With Automated Diff (10/07/19 12:52) Comprehensive Metabolic Panel (10/07/19 12:52) Chest 1 View, Ap/Pa Only (10/07/19 12:52) Pelvis With Right Hip 2-3views (10/07/19 12:52) Ua Culture If Indicated (10/07/19 12:52) Ketamine Syringe (Ed Only) (Ketamine Syr (10/07/19 13:45) Fentanyl Injection (Sublimaze Injection (10/07/19 13:45) Medications Given in ED Current Medications Medications Dose Ordered Sig/Barbara Route Start Time Stop Time Status Last Admin Dose Admin Fentanyl Citrate 50 mcg ONCE ONCE IVP 10/07/19 13:00 10/07/19 13:01 DC 10/07/19 13:11 50 MCG Ketamine HCl 10 mg ONCE ONCE IV 10/07/19 13:00 10/07/19 13:01 DC 10/07/19 13:11 10 MG Vital Signs/I&O 10/07/19 12:50 Temp 36.7 Pulse 101 Resp 18 B/P (MAP) 119/84 (96) Pulse Ox 98 O2 Delivery Room Air Progress Progress Note #1: Time: 13:01 Progress Note Suspect with daily use of Percocet a patient may have a elevated level of tolerance to opiates so for her 10 out of 10 pain. Plan to give her 50 g of fentanyl and 10 mg of ketamine slow IV push. This would be 0.2 mg/kg of ketamine. Check some labs urine and chest x-ray in case a fractured hip. Progress Note #2: Time: 13:38 Progress Note Patient's pain is better after the initial dose of pain medicine. However she says she is starting to get pain again and would like some more pain medicine. Diagnostic Imaging Diagonstic Imaging: Xray Plain Films/CT/US/NM/MRI: chest (1v) Comments No acute changes one view chest x-ray. NAME: MICHELLE CRUZ [facility] REC#: [id number] PT STATUS: REG ER : 1960 PHYSICIAN: MARIANO CHU MD ADMIT DATE: 10/07/19/ER Draft Date of Exam:10/07/19 CHEST 1 VIEW, AP/PA ONLY INDICATION: Chest pain after injury. COMPARISON: None. DISCUSSION: Single frontal upright view of the chest was obtained. Marked levoscoliosis noted at the thoracolumbar junction, incompletely viewed. The lungs are hyperinflated. No focal consolidation, pleural fluid, or pneumothorax. Normal heart size. Left chest wall Zkwtyk-A-Eolh is present. IMPRESSION: 1. No acute cardiopulmonary process. Dictated on workstation # [id number] Dict: 10/07/19 1331 Trans: 10/07/19 1337 AS6 [id number] Interpreted by: TRACEY WYLIE MD Electronically signed by: Reviewed: Reviewed by Me Diagonstic Imaging: Xray Plain Films/CT/US/NM/MRI: pelvis, hip (r) Comments Right-sided intertrochanteric fracture, closed, minimally displaced. [facility] [place] NAME: MICHELLE CRUZ [facility] REC#: [id number] PT STATUS: REG ER : 1960 PHYSICIAN: MARIANO CHU MD ADMIT DATE: 10/07/19/ER Draft Date of Exam:10/07/19 PELVIS WITH RIGHT HIP 2-3VIEWS INDICATION: Fall with right hip pain. COMPARISON: None. DISCUSSION: AP view of the pelvis and two views of the right hip were obtained. There is a nondisplaced acute right femoral intertrochanteric fracture. No dislocation. No other pelvic fracture. Soft tissues are unremarkable. IMPRESSION: 1. Nondisplaced right femoral intertrochanteric fracture. Dictated on workstation # [id number] Dict: 10/07/19 1332 Trans: 10/07/19 1338 AS6 [id number] Interpreted by: TRACEY WYLIE MD Electronically signed by: Reviewed: Reviewed by Me Departure Impression Primary Impression: Closed right hip fracture Qualified Codes: S72.001A - Fracture of unspecified part of neck of right femur, initial encounter for closed fracture Additional Impressions: Fall Qualified Codes: W19.XXXA - Unspecified fall, initial encounter Abrasion of left hand, initial encounter Disposition: XFER [facility]-TRM HOSP Condition: Improved Transfer Transfer Reason: Diversion (No Ortho Coverage) Time Spoke to Accepting Phy: 13:40 Transfer Progress Notes Called [facility] triage at 1335 seeking transfer for no work for coverage diversion. Dr. Hernandez, ED accepts Transfer Facility: [facility] Method of Transfer: EMS Departure-Patient Inst. Referrals: NARGIS MCGILL MD (PCP/Family) Primary Care Physician MARIANO CHU Oct 07, 2019 13:00
--- NOTE | 2019-10-07 13:37 | Diagnostic Imaging Report ---
INDICATION: Chest pain after injury. COMPARISON: None. DISCUSSION: Single frontal upright view of the chest was obtained. Marked levoscoliosis noted at the thoracolumbar junction, incompletely viewed. The lungs are hyperinflated. No focal consolidation, pleural fluid, or pneumothorax. Normal heart size. Left chest wall Xjmdgi-R-Wudf is present. IMPRESSION: 1. No acute cardiopulmonary process. Dictated by: Dictated on workstation # [id number]
--- NOTE | 2019-10-07 13:39 | Diagnostic Imaging Report ---
INDICATION: Fall with right hip pain. COMPARISON: None. DISCUSSION: AP view of the pelvis and two views of the right hip were obtained. There is a nondisplaced acute right femoral intertrochanteric fracture. No dislocation. No other pelvic fracture. Soft tissues are unremarkable. IMPRESSION: 1. Nondisplaced right femoral intertrochanteric fracture. Dictated by: Dictated on workstation # [id number]
--- NOTE | 2019-10-07 13:55 | NUR ---
Contacted [facility] dispatch & sports leadership instructor for request pt transfer to [facility].
[2019-10-07 14:02] LABS: BASOPHILS % (AUTO) 0 % (0-10); EOSINOPHILS % (AUTO) 1 % (0-10); HEMATOCRIT 39 % (35-52); HEMOGLOBIN 12.3 G/DL (11.5-16.0); LYMPHOCYTES # (AUTO) 1.1 X 10^3 (1.0-4.0); LYMPHOCYTES % (AUTO) 18 % (12-44); MEAN CORPUSCULAR HEMOGLOBIN 30 PG (25-34); MEAN CORPUSCULAR HGB CONC 32 G/DL (32-36); MEAN CORPUSCULAR VOLUME 96 FL (80-99); MEAN PLATELET VOLUME 10.6 FL (7.4-10.4); MONOCYTES # (AUTO) 0.2 X 10^3 (0.0-1.0); MONOCYTES % (AUTO) 4 % (0-12); NEUTROPHILS # (AUTO) 4.6 X 10^3 (1.8-7.8); NEUTROPHILS % (AUTO) 77 % (42-75); PLATELET COUNT 166 10^3/uL (130-400); RED CELL DISTRIBUTION WIDTH 13.6 % (10.0-14.5); WHITE BLOOD COUNT 5.9 10^3/uL (4.3-11.0)
[2019-10-07 14:10] LABS: BILIRUBIN,URINE NEGATIVE (NEGATIVE); CLARITY,URINE CLEAR; COLOR,URINE YELLOW; GLUCOSE, URINE (UA) NEGATIVE (NEGATIVE); KETONES,URINE NEGATIVE (NEGATIVE); LEUKOCYTE ESTERASE ,URINE NEGATIVE (NEGATIVE); NITRITE,URINE NEGATIVE (NEGATIVE); PROTEIN,URINE NEGATIVE (NEGATIVE)
[2019-10-07 14:16] LABS: BACTERIA,URINE NEGATIVE /HPF
[2019-10-07 14:22] LABS: ALANINE AMINOTRANSFERASE 12 U/L (0-55); ALBUMIN 4.3 GM/DL (3.2-4.5); ALKALINE PHOSPHATASE 80 U/L (40-136); BILIRUBIN,TOTAL 0.2 MG/DL (0.1-1.0); BUN/CREATININE RATIO 7; CALCIUM 9.8 MG/DL (8.5-10.1); CARBON DIOXIDE 24 MMOL/L (21-32); CHLORIDE 102 MMOL/L (98-107); CREATININE SERUM 0.91 MG/DL (0.60-1.30); GFR ESTIMATED > 60; GLUCOSE 118 MG/DL (70-105); POTASSIUM 3.9 MMOL/L (3.6-5.0); SODIUM 138 MMOL/L (135-145); TOTAL PROTEIN 6.7 GM/DL (6.4-8.2)
[2019-10-07 14:46] VITALS: BP 113/70
== END 2019-10-07 14:46 | disposition short-term general hospital (02) ==
LOC: EDUNIT# 12:50 → ER 12:51
DX: S72.001A Fracture of unspecified part of neck of right femur, initial encounter for closed fracture (principal); S60.512A Abrasion of left hand, initial encounter; J44.9 Chronic obstructive pulmonary disease, unspecified; G62.9 Polyneuropathy, unspecified; M79.7 Fibromyalgia; F41.9 Anxiety disorder, unspecified; F32.9 Major depressive disorder, single episode, unspecified; R40.2142 Coma scale, eyes open, spontaneous, at arrival to emergency department; R40.2252 Coma scale, best verbal response, oriented, at arrival to emergency department; R40.2362 Coma scale, best motor response, obeys commands, at arrival to emergency department; F17.210 Nicotine dependence, cigarettes, uncomplicated; Z88.6 Allergy status to analgesic agent; Z88.8 Allergy status to other drugs, medicaments and biological substances; Z79.52 Long term (current) use of systemic steroids; Z90.710 Acquired absence of both cervix and uterus; W18.39XA Other fall on same level, initial encounter
CPT/HCPCS: 36415; 51702; 71045; 80053; 81000; 85025; 96374; 96375; 96376